=== PATIENT | female | born 1985 | race Caucasian/White ===

== ENCOUNTER 2018-12-13 01:27 | Emergency (ER) | payer MEDICAID ==
[~2018-12-13] VITALS: Ht 165.1 cm; Wt 59.1 kg
[2018-12-13] MEDS ORDERED: LORazepam 1 MG tablet PO ONE ×2 (01:40→13:25)
[2018-12-13 02:10] LABS: BASOPHILS # (AUTO) 0.1 X10'3 (0-0.2); BASOPHILS % (AUTO) 0.7 % (0-1); EOSINOPHILS # (AUTO) 0.1 X10'3 (0-0.9); EOSINOPHILS % (AUTO) 0.9 % (0-6); HEMATOCRIT 44.4 % (35.0-45.0); HEMOGLOBIN 14.6 g/dl (12.0-16.0); LYMPHOCYTES % (AUTO) 20.6 % (21-51); MEAN CORPUSCULAR HGB CONC 32.9 g/dL (33.0-36.5); MEAN CORPUSCULAR VOLUME 88.1 FL (78-98); MEAN PLATELET VOLUME 7.1 FL (7.4-10.4); MONOCYTES # (AUTO) 0.6 X10'3 (0-0.9); MONOCYTES % (AUTO) 4.5 % (2-12); NEUTROPHILS # (AUTO) 10.5 X10'3 (1.8-7.7); NEUTROPHILS % (AUTO) 73.3 % (42-75); PLATELET COUNT 431 X10'3 (140-440); RED BLOOD COUNT 5.04 X10'6 (4.20-5.60); RED CELL DISTRIBUTION WIDTH 14.2 % (11.5-14.5); WHITE BLOOD COUNT 14.4 X10'3 (4.5-11.0)
[2018-12-13 02:21] LABS: ALANINE AMINOTRANSFERASE 17 U/L (12-78); ALBUMIN 3.9 G/DL (3.4-5.0); ALKALINE PHOSPHATASE 57 IU/L (46-116); ANION GAP 11 (8-16); ASPARTATE AMINO TRANSFERASE 14 U/L (10-37); BILIRUBIN,TOTAL 0.2 MG/DL (0.1-1.0); BLOOD UREA NITROGEN 9 MG/DL (7-18); BUN/CREATININE RATIO 16.4 (6.6-38.0); CALCIUM 9.3 MG/DL (8.5-10.1); CHLORIDE 109 MMOL/L (99-107); CREATININE 0.55 MG/DL (0.40-0.90); GLUCOSE 107 MG/DL (70-104); POTASSIUM 4.3 MMOL/L (3.5-5.1); SODIUM 142 MMOL/L (135-145); TOTAL PROTEIN 7.7 G/DL (6.4-8.2); eGFR > 90 ML/MIN
[2018-12-13 02:29] LABS: ETHANOL 0.134 GM/DL (0.0-0.010)
[2018-12-13 02:30] LABS: ACETAMINOPHEN < 2.0 UG/ML (10-30)
--- NOTE | 2018-12-13 02:51 | NUR ---
telepsych initiated. Currently patient is asleep.
--- NOTE | 2018-12-13 02:56 | NUR ---
informed patient about the telepsych consult and about how it all works. Informed her to sleep until the psych md comes on to talk to her, as I don't know the timeline. Got her a few more blankets. The fingers have stopped bleeding. I told her to just leave them alone for now, make sure they clot up really well.
--- NOTE | 2018-12-13 05:34 | NUR ---
SOC: watch for benzo withdrawl, needs inpatient psychiatric admission.
--- NOTE | 2018-12-13 05:41 | NUR ---
Pt is done with telepsych, she is asleep. Removed cart from the room, turned off the lights and closed the glass doors so she can rest.
--- NOTE | 2018-12-13 06:30 | NUR ---
PT WALKED TO BATHROOM WITHOUT NOTIFYING STAFF. PT INSTRUCTED TO LET STAFF KNOW NEXT TIME DUE TO NEEDING A URINE SAMPLE PER ORDERS. PT VERBALIZED UNDERSTANDING.
--- NOTE | 2018-12-13 11:05 | NUR ---
[facility] AT BEDSIDE FOR EVALUATION AND REWRITING [id number]
--- NOTE | 2018-12-13 11:43 | NUR ---
PT SLEEPING, RESPIRATIONS EVEN, SPONTANEOUS, AND UNLABORED, NO S&S OD DISTRESS OR AGITATION, WILL CONTINUE TO MONITOR
--- NOTE | 2018-12-13 12:45 | NUR ---
PT SLEEPING BUT AROUSABLE. STATES, IM NOT HUNGRY AND I DONT NEED TO PEE.
--- NOTE | 2018-12-13 13:03 | NUR ---
PT UP TO BR VOIDED LIGHT CEE URINE, AND SPECIMEN SENT TO LAB.
[2018-12-13] MEDS ORDERED: TETanus/Pertussis (Acell)/Diphther VAC/PF (Tdap-Adult) 0.5ml syringe IM ONE (13:20)
--- NOTE | 2018-12-13 13:20 | NUR ---
PT IS AWAKE NOW BUT STATES SHE DOES NOT WANT TO EAT, PT EVALUATED BY RN, DR COYLE INFORMED OF PT INJURIES TO RIGHT INDEX AND MIDDLE FINGER, ALSO NOTED INCREASED ANXIETY, RECEIVED VERBAL ORDER FOR 1 MG PO [address]AN FROM DR COYLE, PROVIDER TO EVALUATE PT INJURY AND PLACED ADDITIONAL ORDERS IF NEEDED.
[2018-12-13 13:21] LABS: URINE HCG NEGATIVE (NEG)
[2018-12-13 13:23] LABS: CLARITY,URINE CLOUDY (Clear); COLOR,URINE YELLOW (Yellow); GLUCOSE, URINE NEGATIVE (Neg); KETONES,URINE 15 mg/dl (Neg); LEUKOCYTE ESTERASE ,URINE NEGATIVE (Neg); NITRITES, URINE POSITIVE (Neg); OCCULT BLOOD,URINE SMALL (Neg); PH,URINE 6.5 (4.8-8.0); PROTEIN,URINE NEGATIVE (Neg)
[2018-12-13 13:29] LABS: URINE AMPHETAMINE SCREEN NEGATIVE (Neg); URINE BARBITUATE SCREEN NEGATIVE (Neg); URINE BENZODIAZEPINES SCREEN POSITIVE (Neg); URINE CANNABINOID SCREEN POSITIVE (Neg); URINE COCAINE SCREEN NEGATIVE (Neg); URINE METHADONE SCREEN NEGATIVE (Neg); URINE OPIATE SCREEN NEGATIVE (Neg); URINE PHENCYCLIDINE SCREEN NEGATIVE (Neg)
[2018-12-13 13:48] LABS: UA COLLECTION TYPE CLN CATCH MIDSTREAM
[2018-12-13 13:56] LABS: SQUAMOUS EPITHELIAL CELL,UR FEW /LPF (FEW)
[2018-12-13 13:57] LABS: BACTERIA,URINE 4+ /HPF (Neg)
[2018-12-13 13:59] LABS: WBC,URINE 0-4 /HPF (0-4)
[2018-12-13 14:00] LABS: RBC,URINE 0-2 /HPF (0-2)
--- NOTE | 2018-12-13 14:25 | NUR ---
DR COYLE INFORMED OF URINE RESULTS AND FINGER XRAY RESULTS, PROVIDER TO REVIEW AND EVALUATE PT LAC TO DETERMINE IRRIGATION AND SUTURE NEEDS. NO ORDER RECEIVED AT THIS TIME. PT IS LAYING ON SIDE SLEEPING, NO S/S OF DISTRESS OR DISCOMFORT OR AGITATION AT THIS TIME.
[2018-12-13] MEDS ORDERED: cephalexin 500mg capsule PO ONE (14:45)
[2018-12-13] MEDS ORDERED: ceFAZolin 1000mg inj IV ONE (14:50)
[2018-12-13] MEDS ORDERED: ceFAZolin inj. 2,000 MG in dextrose 5%-water 100 ML IV ONE (14:52)
--- NOTE | 2018-12-13 15:45 | NUR ---
ALVA GOMEZSLOT MACHINE FLOOR PERSON TO PLACE DRESSING AND SPLINT PER ORDERS AND VERBAL CONFIRMATION FROM DR COYLE
[2018-12-13] MEDS: cephalexin 250mg capsule PO SCH ×2 (15:50→20:04)
--- NOTE | 2018-12-13 16:02 | NUR ---
DR COYLE STATES TO TO BE ON KEFLEX Q 6 HOURS DURING STAY AND WILL BE ON 10 DAY COURSE, VERBAL ORDER RECEIVED FROM DR COYLE FOR ATIVAN PO PRN Q 6 HOURS FOR ANXIETY. PENDING URINE CULTURE IF KEFLEX RESISTANT NEW ABX WILL BE ADDED FOR UTI KEFLEX IS FOR BOTH UTI AND FINGER INJURY AT THIS TIME.
[2018-12-13] MEDS ORDERED: LORazepam 1 MG tablet PO PRN (16:05)
--- NOTE | 2018-12-13 16:15 | NUR ---
PT MOVED FROM BED 14 TO BED 21, SBAR REPORT CALLED BY CASSIE MALONE TO RIAZ MALONE IN OVERFLOW
--- NOTE | 2018-12-13 20:00 | NUR ---
PT ALSEEP, AWAKENED TO GIVE ABX BUT THEN RIGHT BACK TO SLEEP
[2018-12-14] MEDS: cephalexin 250mg capsule PO SCH ×2 (02:42→08:31)
--- NOTE | 2018-12-14 11:00 | NUR ---
MORNING REMAINS UNEVENTFUL PT HAS BEEN RESTING. PT SPOKE TO [facility], PT TO BE GOING UPSTAIRS SOMETIME IN THE AFTERNOON
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
--- NOTE | 2018-12-14 11:45 | NUR ---
DRSG OF INDEX AND MIDDLE FINGERS OF RIGHT HAND CHANGED. MIDDLE FINGER STITCHES ARE CDI.
[2018-12-14] MEDS ORDERED: nicotine 14mg patch - 24hr TD ONE (12:25)
[2018-12-14 14:14] VITALS: BP 108/53
[2018-12-14] MEDS ORDERED: LORA-269 PO (15:30)
[2018-12-14] MEDS ORDERED: NICO-687 TD (15:30)
[2018-12-14] MEDS ORDERED: CEPH-572 PO (15:30)
[2018-12-17] MEDS ORDERED: NICO-631 TD (12:17)
[2018-12-17] MEDS ORDERED: CEPH500C5 PO (12:17)
== END 2018-12-14 14:15 ==
LOC: ER 01:28
DX: S61.212A Laceration without foreign body of right middle finger without damage to nail, initial encounter (principal); S61.210A Laceration without foreign body of right index finger without damage to nail, initial encounter; R45.851 Suicidal ideations; N39.0 Urinary tract infection, site not specified; F11.90 Opioid use, unspecified, uncomplicated; X78.8XXA Intentional self-harm by other sharp object, initial encounter; Y93.89 Activity, other specified; Y92.89 Other specified places as the place of occurrence of the external cause; Y99.8 Other external cause status
CPT/HCPCS: 12002; 36415; 73130; 80053; 80305; 80320; 80329; 81001; 81025; 84443; 85025; 87077; 87088; 87186; 90715; 99285; J0690; J7060

== ENCOUNTER 2018-12-14 13:16 | Inpatient (IN) | payer MEDICAID | END 2018-12-17 13:40 | disposition still patient (30) | LOC: ADULT MH 13:16 | DX: F43.22 Adjustment disorder with anxiety (principal); F10.20 Alcohol dependence, uncomplicated; N39.0 Urinary tract infection, site not specified ==

== ENCOUNTER 2020-03-30 19:39 | Emergency (ER) | payer MEDICAID ==
[~2020-03-30] VITALS: Ht 165.1 cm; Wt 54.5 kg
[~2020-03-30 19:39] MED LIST: CEPH-572 PO; CEPH500C5 PO; NICO-631 TD; NICO-687 TD
[2020-03-30 20:15] LABS: BASOPHILS # (AUTO) 0.1 X10'3 (0-0.2); BASOPHILS % (AUTO) 0.6 % (0-1); EOSINOPHILS % (AUTO) 0.4 % (0-6); HEMATOCRIT 39.2 % (35.0-45.0); HEMOGLOBIN 13.1 g/dl (12.0-16.0); LYMPHOCYTES # (AUTO) 2.2 X10'3 (1.1-4.8); LYMPHOCYTES % (AUTO) 16.3 % (21-51); MEAN CORPUSCULAR HEMOGLOBIN 29.1 PG (27.0-31.0); MEAN CORPUSCULAR HGB CONC 33.3 g/dL (33.0-36.5); MEAN CORPUSCULAR VOLUME 87.3 FL (78-98); MEAN PLATELET VOLUME 7.1 FL (7.4-10.4); MONOCYTES # (AUTO) 0.8 X10'3 (0-0.9); MONOCYTES % (AUTO) 5.9 % (2-12); NEUTROPHILS # (AUTO) 10.5 X10'3 (1.8-7.7); NEUTROPHILS % (AUTO) 76.8 % (42-75); PLATELET COUNT 432 X10'3 (140-440); RED BLOOD COUNT 4.49 X10'6 (4.20-5.60); RED CELL DISTRIBUTION WIDTH 15.4 % (11.5-14.5); WHITE BLOOD COUNT 13.6 X10'3 (4.5-11.0)
[2020-03-30 20:21] LABS: ALANINE AMINOTRANSFERASE 23 U/L (12-78); ALBUMIN 3.6 G/DL (3.4-5.0); ALKALINE PHOSPHATASE 55 IU/L (46-116); ANION GAP 10 (8-16); ASPARTATE AMINO TRANSFERASE 21 U/L (10-37); BILIRUBIN,TOTAL 0.3 MG/DL (0.1-1.0); BLOOD UREA NITROGEN 9 MG/DL (7-18); BUN/CREATININE RATIO 9.7 (6.6-38.0); CALCIUM 9.5 MG/DL (8.5-10.1); CHLORIDE 109 MMOL/L (99-107); CREATININE 0.93 MG/DL (0.40-0.90); GLUCOSE 91 MG/DL (70-104); POTASSIUM 4.2 MMOL/L (3.5-5.1); SODIUM 143 MMOL/L (135-145); TOTAL CARBON DIOXIDE 23.8 MMOL/L (24-32); TOTAL PROTEIN 7.3 G/DL (6.4-8.2); eGFR 69 ML/MIN
[2020-03-30 21:15] VITALS: BP 116/78
[2020-03-31 08:16] LABS: HIV ANTIBODY 1&2 RAPID NON-REACTIVE (Neg)
[2020-04-03 09:29] LABS: HEP B CORE AB, TOT Negative (Negative); HEPATITIS C ANTIBODY <0.1 s/co ratio (0.0-0.9)
== END 2020-03-30 21:16 ==
LOC: ER 19:41
DX: S60.512A Abrasion of left hand, initial encounter (principal); S60.511A Abrasion of right hand, initial encounter; S80.811A Abrasion, right lower leg, initial encounter; S80.812A Abrasion, left lower leg, initial encounter; F10.920 Alcohol use, unspecified with intoxication, uncomplicated; F41.9 Anxiety disorder, unspecified; F11.90 Opioid use, unspecified, uncomplicated; Z78.1 Physical restraint status; Z79.2 Long term (current) use of antibiotics; Z79.899 Other long term (current) drug therapy; X58.XXXA Exposure to other specified factors, initial encounter; Y93.89 Activity, other specified; Y92.89 Other specified places as the place of occurrence of the external cause; Y99.8 Other external cause status
CPT/HCPCS: 36415; 80053; 80320; 85025; 86703; 86704; 86705; 86706; 86803; 93005; 99284

== ENCOUNTER 2023-01-10 02:31 | Emergency (ER) | payer MEDICAID ==
[~2023-01-10] VITALS: Ht 165.1 cm; Wt 54.5 kg
[~2023-01-10 02:31] MED LIST changes: +CEPH-585 PO; -CEPH500C5 PO
[2023-01-10 03:40] LABS: ALANINE AMINOTRANSFERASE 15 U/L (12-78); ALBUMIN 3.6 G/DL (3.4-5.0); ALKALINE PHOSPHATASE 50 IU/L (46-116); ANION GAP 12 (8-16); ASPARTATE AMINO TRANSFERASE 13 U/L (10-37); BILIRUBIN,TOTAL 0.1 MG/DL (0.1-1.0); BLOOD UREA NITROGEN 9 MG/DL (7-18); BUN/CREATININE RATIO 14.5 (10.0-20.0); CALCIUM 8.7 MG/DL (8.5-10.1); CHLORIDE 107 MMOL/L (99-107); CREATININE 0.62 MG/DL (0.40-0.90); ETHANOL 0.179 GM/DL (0.0-0.010); GLUCOSE 107 MG/DL (70-104); POTASSIUM 4.6 MMOL/L (3.5-5.1); SODIUM 144 MMOL/L (135-145); TOTAL CARBON DIOXIDE 25.4 MMOL/L (24-32); TOTAL PROTEIN 7.2 G/DL (6.4-8.2); eGFR > 90 ML/MIN
[2023-01-10 03:43] LABS: BASOPHILS # (AUTO) 0.1 X10'3 (0-0.2); BASOPHILS % (AUTO) 1.1 % (0-1); EOSINOPHILS # (AUTO) 0.1 X10'3 (0-0.9); EOSINOPHILS % (AUTO) 1.5 % (0-6); HEMATOCRIT 40.1 % (35.0-45.0); HEMOGLOBIN 13.4 g/dl (12.0-16.0); LYMPHOCYTES # (AUTO) 2.3 X10'3 (1.1-4.8); LYMPHOCYTES % (AUTO) 27.1 % (21-51); MEAN CORPUSCULAR HEMOGLOBIN 29.7 PG (27.0-31.0); MEAN CORPUSCULAR HGB CONC 33.5 g/dL (33.0-36.5); MEAN CORPUSCULAR VOLUME 88.5 FL (78-98); MEAN PLATELET VOLUME 7.3 FL (7.4-10.4); MONOCYTES # (AUTO) 0.4 X10'3 (0-0.9); MONOCYTES % (AUTO) 5.3 % (2-12); NEUTROPHILS # (AUTO) 5.5 X10'3 (1.8-7.7); PLATELET COUNT 413 X10'3 (140-440); RED BLOOD COUNT 4.53 X10'6 (4.20-5.60); RED CELL DISTRIBUTION WIDTH 17.4 % (11.5-14.5); WHITE BLOOD COUNT 8.5 X10'3 (4.5-11.0)
[2023-01-10] MEDS ORDERED: NO HOME MEDS (03:54)
[2023-01-10] MEDS ORDERED: LIDOcaine 1% W/epiNEPHrine 1:100,000 20ml vial IJ ONE (04:05)
--- NOTE | 2023-01-10 05:33 | NUR ---
Pt went to the bathroom with arturo and came back screaming and name calling. Arturo states that she was in the BR with her face in the sink trying to drink water dispite the MD just telling the patient that she couldn't have water. The pt also was wanting to leave. I stood in front of her in the hallway and de escalated her and she went back into her room.
--- NOTE | 2023-01-10 05:39 | NUR ---
Security on stand by as MD sutures patient.
[2023-01-10] MEDS ORDERED: ondansetron 4mg rapidly disintigrating tab PO ONE (05:45)
--- NOTE | 2023-01-10 06:38 | NUR ---
received report from Jesika MARTINEZ assuming care of pt. [address] room secure pt resting at present time. Sutures to laceration site completed on Noc shift.
--- NOTE | 2023-01-10 11:15 | NUR ---
pt continues to sleeping quietly in room. remains in direct obs of nursing station.
--- NOTE | 2023-01-10 13:08 | NUR ---
REPORT GIVEN TO KATELYNN MALONE ASSUMING CARE .PT WILL BE TRANSPORTED VIA GURNEY TO RM 20 IN OVER FLOW AREA.
--- NOTE | 2023-01-10 13:26 | NUR ---
Received patient to bed #20 from main ED. Pt was calm as she was escorted to bed. Pt given warm blankets. Pt reports she takes Suboxone 8-2mg film and has weaned herself to a "1/4 of strip." Pt reports she is having withdrawals. Pt is restless and reports "not feeling well." Suboxone prescription was verified through external med rec. Spoke with Dr. Lawrence he asked to call pharmacy to clarify the how to place order.
[2023-01-10] MEDS ORDERED: BUPR1TAB44 SL (13:33)
[2023-01-10] MEDS: buprenorphine/naloxone 2-0.5mg sublingual tablet SL SCH (13:42)
--- NOTE | 2023-01-10 13:43 | NUR ---
Spoke with the pharmacist Cadence. Order for SL Suboxone 2-0.5 mg was compreble to pt's dose. Order placed and administered to patient. Will continue to monitor patient for withdrawals symptoms.
--- NOTE | 2023-01-10 13:45 | NUR ---
Pt verbalized to comic book writer that she is a cutter "I have been a cutter since I was a teenager."
--- NOTE | 2023-01-10 14:28 | NUR ---
Pt is now resting comfortably, no restless movements. Respirations even and unlabored.
--- NOTE | 2023-01-10 15:02 | NUR ---
Pt appears to be sleeping. RR even and unlabored.
--- NOTE | 2023-01-10 16:00 | NUR ---
Woke patient to obtain urine sample.
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
[2023-01-10 16:12] LABS: URINE HCG NEGATIVE (NEG)
[2023-01-10 16:13] LABS: CLARITY,URINE CLOUDY (Clear); COLOR,URINE YELLOW (Yellow); GLUCOSE, URINE NEGATIVE (Neg); KETONES,URINE NEGATIVE (Neg); LEUKOCYTE ESTERASE ,URINE NEGATIVE (Neg); NITRITES, URINE NEGATIVE (Neg); OCCULT BLOOD,URINE MODERATE (Neg); PROTEIN,URINE NEGATIVE (Neg); UROBILINOGEN,URINE 0.2 E.U/dL (0.2-1.0)
[2023-01-10 16:17] LABS: UA COLLECTION TYPE CLN CATCH MIDSTREAM
[2023-01-10 16:18] LABS: RBC,URINE NONE SEEN /HPF (0-2); WBC,URINE NONE SEEN /HPF (0-4)
[2023-01-10 16:19] LABS: AMORPHOUS PHOSPHATES 4+; BACTERIA,URINE NONE SEEN /HPF (Neg); MUCUS STRANDS FEW /LPF (Neg); SQUAMOUS EPITHELIAL CELL,UR NONE SEEN /LPF (FEW)
--- NOTE | 2023-01-10 16:23 | NUR ---
SUBOXONE GIVEN AT 1342 WAS EFFECTIVE. NO C/O GI ISSUES, NO BODY ACHES, NO RESTLESSNESS.
--- NOTE | 2023-01-10 16:28 | NUR ---
URINE SAMPLE OBTAINED. URINE LIGHT CEE, CLOUDY WITH STRONG ODOR.
--- NOTE | 2023-01-10 16:30 | NUR ---
FAXED PACKET TO [facility].
[2023-01-10 16:36] LABS: URINE AMPHETAMINE SCREEN POSITIVE (Neg); URINE BARBITUATE SCREEN NEGATIVE (Neg); URINE BENZODIAZEPINES SCREEN NEGATIVE (Neg); URINE CANNABINOID SCREEN POSITIVE (Neg); URINE COCAINE SCREEN NEGATIVE (Neg); URINE METHADONE SCREEN NEGATIVE (Neg); URINE OPIATE SCREEN NEGATIVE (Neg); URINE PHENCYCLIDINE SCREEN NEGATIVE (Neg)
--- NOTE | 2023-01-10 18:36 | NUR ---
The patient has been resting on her bed. Dressing to left forearm is CDI. She denies that she is suicidal. She refused her dinner. She was offered another blanket. No agitation noted.
--- NOTE | 2023-01-10 19:00 | NUR ---
The patient is resting on her bed. She refused offer of food. When asked if she felt suicidal she replied, "I never was"
--- NOTE | 2023-01-10 21:30 | NUR ---
the patient appears to be sleeping
--- NOTE | 2023-01-11 02:45 | NUR ---
assumed care. Pt appears to be resting with eyes closed rr 15. No s/s distress.
--- NOTE | 2023-01-11 04:33 | NUR ---
Pt appears to be asleep. RR even and unlabored.
--- NOTE | 2023-01-11 06:41 | NUR ---
Patient sleeping supine. No distress observed. Continue to monitor.
--- NOTE | 2023-01-11 08:12 | NUR ---
Breakfast tray on bedside table. Patient does not want to wake up and eat. No distress observed. Continue to monitor.
[2023-01-11] MEDS: buprenorphine/naloxone 2-0.5mg sublingual tablet SL SCH (08:58)
[2023-01-11 09:04] VITALS: BP 120/87
--- NOTE | 2023-01-11 09:31 | NUR ---
Met with patient in regards to substance use and to see if patient was interested in resources for treatment options. Patient declined resources and stated she doesn't use drugs.
--- NOTE | 2023-01-11 10:16 | NUR ---
Patient continues to sleep. No distress observed. Continue to monitor.
--- NOTE | 2023-01-11 12:10 | NUR ---
Placed lunch tray on bedside table. Advised patient that her lunch was here. Patient wants to sleep. Continue to monitor.
--- NOTE | 2023-01-11 12:16 | NUR ---
PATIENT WOKE UP AND DRANK HER MILK AND ORANGE JUICE DURING THE LATE MORNING. SHE DID NOT EAT ANYTHING.
== END 2023-01-11 12:32 | disposition home or self-care (01) ==
LOC: ER 02:31
DX: S41.112A Laceration without foreign body of left upper arm, initial encounter (principal); Z20.822 Contact with and (suspected) exposure to COVID-19; R45.851 Suicidal ideations; F32.A Depression, unspecified; F17.200 Nicotine dependence, unspecified, uncomplicated; F41.9 Anxiety disorder, unspecified; Z79.1 Long term (current) use of non-steroidal anti-inflammatories (NSAID); Z79.2 Long term (current) use of antibiotics; X78.8XXA Intentional self-harm by other sharp object, initial encounter; Y93.89 Activity, other specified; Y92.89 Other specified places as the place of occurrence of the external cause; Y99.8 Other external cause status
CPT/HCPCS: 12032; 36415; 80053; 80305; 80320; 81001; 81025; 84443; 85025; 87811; 99285; J7030; A4565; A6446; A6449